=== PATIENT | male | born 1995 | race African-American/Black ===

== ENCOUNTER 2024-03-12 11:35 | Emergency (ER) | payer OTHER ==
[2024-03-12 11:47] VITALS: BP 113/61; PULSE 60; RESP 20; TEMP 98.4; BMI 29.2
[2024-03-12 12:29] LABS: BASO % 0.8 % (0-2.0); EOS % 1.6 % (0-4.5); HEMOGLOBIN 14.8 GM/dL (11.7-16.9); LYMPH % 31.5 % (8-40); MCH 22.9 pg (25.7-33.7); MCHC 32.3 g/dl (32.0-35.9); MONO % 10.9 % (3.8-10.2); NEUT % 55.2 % (42.8-82.8); PLATELET COUNT 231 10^3/uL (134-434); RBC 6.47 M/mm3 (4.00-5.60); RDW 14.8 % (11.9-15.9); WHITE BLOOD COUNT 5.5 K/mm3 (4.0-10.0)
[2024-03-12 12:56] LABS: POTASSIUM 3.9 mmol/L (3.5-5.1)
[2024-03-12 12:58] LABS: ALBUMIN 4.6 g/dl (3.4-5.0); CALCIUM 9.6 mg/dL (8.5-10.1)
[2024-03-12 12:59] LABS: BLOOD UREA NITROGEN 19.6 mg/dL (7-18); MAGNESIUM 1.8 mg/dL (1.8-2.4)
[2024-03-12 13:01] LABS: CREATININE 1.2 mg/dL (0.55-1.3)
[2024-03-12 13:03] LABS: BILIRUBIN,TOTAL 0.4 mg/dL (0.2-1); TOT PROT 7.6 g/dl (6.4-8.2)
[2024-03-12] MEDS: SODIUM CHLORIDE 1,000 ML IV STA (13:52)
[2024-03-12] MEDS ORDERED: IBUPROFEN 600 MG TABLET (FP) PO ONE (14:44)
[2024-03-12] MEDS: IBUPROFEN 600 MG TABLET (FP) PO ONE (14:48)
== END 2024-03-12 15:59 | disposition home or self-care (01) ==
LOC: JER 11:35
PROC: 3E0337Z Introduction of Electrolytic and Water Balance Substance into Peripheral Vein, Percutaneous Approach (ICD-10-PCS; principal; 2024-03-12)
DX: R07.89 Other chest pain (principal); R53.83 Other fatigue; M79.602 Pain in left arm; R06.02 Shortness of breath; Z20.822 Contact with and (suspected) exposure to COVID-19
CPT/HCPCS: 0241U-QW; 36415; 71046-TC-FY; 80053; 83735; 84484; 85025; 93005; 93010; 93308; 99285-25